=== PATIENT | female | born 1950 | race Caucasian/White ===

== ENCOUNTER 2019-01-03 12:44 | Emergency (ER) | payer OTHER, MEDICAID ==
[~2019-01-03] VITALS: Ht 154.9 cm; Wt 76.0 kg
[2019-01-03 12:54] VITALS: Ht 154.9 cm; Wt 76.0 kg
[2019-01-03 14:24] VITALS: BP 131/84
== END 2019-01-03 14:24 | disposition home or self-care (01) ==
LOC: ED 12:44
DX: M54.31 Sciatica, right side (principal); I10 Essential (primary) hypertension; E11.9 Type 2 diabetes mellitus without complications; Z98.890 Other specified postprocedural states; Z90.710 Acquired absence of both cervix and uterus
CPT/HCPCS: J1885